=== PATIENT | female | born 1960 | race Caucasian/White ===

== ENCOUNTER 2021-11-30 17:17 | Emergency (ER) | payer BC, SELFPAY ==
[2021-11-30 18:22] VITALS: BP 173/83; PULSE 114; RESP 18; TEMP 37; O2SAT 96; BMI 21.9
--- NOTE | 2021-11-30 18:25 | XR_ITS ---
PROCEDURE INFORMATION: Exam: XR Chest Exam date and time: 11/30/2021 6:22 PM Age: 61 years old Clinical indication: Smoker's cough TECHNIQUE: Imaging protocol: Radiologic exam of the chest. Views: 2 views. COMPARISON: CR CXR CHEST(2 VIEWS-NOT PORTABLE) 08/03/2015 10:48 PM FINDINGS: Lungs: Normal pulmonary expansion. Pulmonary vasculature grossly normal. No gross pulmonary infiltrates or edema pattern. Pleural spaces: Mild bilateral pleural/parenchymal scarring in the pulmonary apices. This is unchanged. No pleural effusion. No pneumothorax. Heart/Mediastinum: Heart size normal. No tracheal/mediastinal shift. Bones/joints: No acute osseous abnormalities are identified. Soft tissues: Upper abdominal surgical clips noted. IMPRESSION: No acute thoracic process. No significant interval change.
--- NOTE | 2021-11-30 18:28 | EXP.UTC ---
Discharge Plan Disposition Patient Disposition: Home, Self-Care Condition: Good Prescriptions Prescriptions: New benzonatate [benzonatate] 100 mg capsule 100 mg PO TIDP PRN (Reason: Cough) Qty: 30 0RF methylprednisolone 4 mg Tablets,Dose Pack 4 mg PO DIRECTED Qty: 21 0RF amoxicillin-pot clavulanate 875-125 mg Tablet 1 tab PO Q12H Qty: 20 0RF No Action promethazine-DM 120 ML syrup 5 ml PO Q6HP PRN (Reason: Cough) Qty: 240 0RF azithromycin 250 MG tablet 250 mg PO UD DOSE PK Qty: 6 0RF Rx Instructions: Take two (2) tablets today, then one (1) tablet days #2 thru #5 methylprednisolone 4 MG tablets,dose pack 4 mg PO DIRECTED 6 Days Qty: 21 0RF albuterol sulfate 18 GM HFA aerosol inhaler 1 - 2 puffs IH Q4-6H PRN (Reason: Shortness Of Breath Or Wheezing) Qty: 1 0RF Referrals Follow up/Referrals: Dayana Mcconnell [Primary Care Provider] - See instructions Activity Restrictions/Add. Instructions Additional Instructions/Restrictions: Drink plenty of fluids. Take tylenol or ibuprofen for pain or fever. Take the medications as directed. Follow up with your regular doctor. GO TO THE ER FOR ANY WORSENING SYMPTOMS Don't start the oral steroids until tomorrow, since you had the shot here today. Clinical Impressions Clinical Impression: COPD exacerbation Instructions Patient Instructions: DI for Chronic Obstructive Pulmonary Disease Discharge ED Provider: Moe Choe [facility] [place] HPI General Stated complaint: CHILLS, COUGH, CONGESTION Mode of Arrival: Ambulatory Source of Information: Patient Limitations: No Limitations Time Seen by Provider: 11/30/21 18:28 Description of Symptoms (Recalled from Triage Doc. by RN): pt comes in with c/o cough, chest pain with coughing, pain in groin when coughing. HEENT Symptoms (Recalled from RN notes): No Resp Symptoms (Recalled from RN notes): Yes Skin Symptoms (Recalled from RN notes): No MS Symptoms (Recalled from RN notes): No Functional Status (Recalled from RN notes): n/a History of Present Illness Provider Complaint: She states that for the past 3 days she has been having a worsening cough and chest congestion. Related Data Previous Rx's Medication Instructions Recorded albuterol sulfate 90 mcg/actuation 1 - 2 puffs IH Q4-6H PRN Shortness 12/27/18 aerosol inhaler Of Breath Or Wheezing #1 inh azithromycin 250 mg tablet 250 mg PO UD DOSE PK #6 tabs 12/27/18 methylprednisolone 4 mg tablets in 4 mg PO DIRECTED 6 days ##21 12/27/18 a dose pack promethazine-DM 6.25 mg-15 mg/5 mL 5 ml PO Q6HP PRN Cough ##240 12/27/18 oral syrup amoxicillin 875 mg-potassium 1 tab PO Q12H #20 tabs 11/30/21 clavulanate 125 mg tablet benzonatate 100 mg capsule 100 mg PO TIDP PRN Cough #30 caps 11/30/21 methylprednisolone 4 mg tablets in 4 mg PO DIRECTED #21 tabs 11/30/21 a dose pack Allergies Allergy/AdvReac Type Severity Reaction Status Date / Time No Known Allergies Allergy Verified 11/30/21 18:26 Worker's Comp Is this a Worker's Comp case?: No PFSH PFSH Social History Smoking Status: Never smoker second hand exposure: No alcohol intake: never current occupational status: other Travel in the last 8 weeks: None housing: house ROS Obtained: Yes All systems reviewed & no additional complaints except as documented Constitutional Constitutional: Denies chills and Denies fever(s) Eyes Eyes: Denies eye discharge ENT Ears, Nose, Mouth, and Throat: Reports as per HPI Cardiovascular Cardiovascular: Denies chest pain Respiratory Respiratory: Denies chest congestion and Reports cough Gastrointestinal Gastrointestingal: Reports nausea; Denies abdominal pain, constipation, cramping, diarrhea or vomiting Musculoskeletal Musculoskeletal: Denies arthralgias Integumentary/Breasts Skin/Breast: Denies rash Neurologic Neurologic: Denies paresthesias Physical E
[2021-11-30 19:21] VITALS: BP 173/83; PULSE 114; RESP 18; TEMP 37
== END 2021-11-30 19:28 | disposition home or self-care (01) ==
PROVIDERS: Emergency Provider Nurse Practitioner Family; PCP Nurse Practitioner Family
DX: R07.9 Chest pain, unspecified (principal); R10.30 Lower abdominal pain, unspecified; R06.02 Shortness of breath; R05.9 Cough, unspecified; R11.0 Nausea; Z79.51 Long term (current) use of inhaled steroids; Z79.52 Long term (current) use of systemic steroids; Z20.822 Contact with and (suspected) exposure to COVID-19
CPT/HCPCS: 71046; 96372; 99213; C9803; G0463; J0696; U0003; U0005

== ENCOUNTER 2022-08-01 18:33 | Emergency (ER) | payer BC, SELFPAY ==
[2022-08-01 18:45] VITALS: BP 141/71; PULSE 77; RESP 18; TEMP 37; O2SAT 98; BMI 22.6
--- NOTE | 2022-08-01 19:13 | EXP.UTC ---
Discharge Plan Disposition Patient Disposition: Home, Self-Care Condition: Good Prescriptions Prescriptions: New amoxicillin-pot clavulanate 875-125 mg Tablet 1 tab PO Q12H Qty: 20 0RF No Action promethazine-DM 120 ML syrup 5 ml PO Q6HP PRN (Reason: Cough) Qty: 240 0RF azithromycin 250 MG tablet 250 mg PO UD DOSE PK Qty: 6 0RF Rx Instructions: Take two (2) tablets today, then one (1) tablet days #2 thru #5 methylprednisolone 4 MG tablets,dose pack 4 mg PO DIRECTED 6 Days Qty: 21 0RF albuterol sulfate 18 GM HFA aerosol inhaler 1 - 2 puffs IH Q4-6H PRN (Reason: Shortness Of Breath Or Wheezing) Qty: 1 0RF benzonatate [benzonatate] 100 mg capsule 100 mg PO TIDP PRN (Reason: Cough) Qty: 30 0RF methylprednisolone 4 mg Tablets,Dose Pack 4 mg PO DIRECTED Qty: 21 0RF amoxicillin-pot clavulanate 875-125 mg Tablet 1 tab PO Q12H Qty: 20 0RF Referrals Follow up/Referrals: Jono Espinal MD [Physician] - See instructions Charly Joyner MD [Physician] - See instructions Dayana Mcconnell [Primary Care Provider] - See instructions Terri Mendenhall APRN [Nurse Practitioner] - See instructions Activity Restrictions/Add. Instructions Additional Instructions/Restrictions: Recommend lemon drops, tart candies, or other sialogogues to promote salivation and stone passage Suck on ice chips or ice treats such as Popsicles. Eat soft foods that do not have to be chewed much Drink lots of water and use sugar-free lemon drops?or lemon drops if you cannot find sugar free to increase the flow of saliva and reduce swelling. Massaging the gland with heat. Using warm compresses on the inflamed gland Follow up with ENT if no improvement or any worsening of symptoms Call office tomorrow for appointment Over the counter Motrin and/or Tylenol may help with pain and discomfort Clinical Impressions Clinical Impression: Parotitis Instructions Patient Instructions: DI for Parotitis-Adult, Parotitis Discharge ED Provider: Samantha Woods [facility] [place] General Stated complaint: swollen glands Mode of Arrival: Ambulatory Source of Information: Patient Limitations: No Limitations Time Seen by Provider: 08/01/22 19:05 Description of Symptoms (Recalled from Triage Doc. by RN): PATIENT C/O SWOLLEN LYMPH NODES TO LEFT SIDE OF NECK THAT STARTED TODAY HEENT Symptoms (Recalled from RN notes): Yes Resp Symptoms (Recalled from RN notes): No Skin Symptoms (Recalled from RN notes): No MS Symptoms (Recalled from RN notes): No Functional Status (Recalled from RN notes): WNL History of Present Illness Provider Complaint: Patient states that earlier today she noticed a sore area on the left side of jaw/neck area just under her ear that was tender and swollen States that she noticed when she would eat it would swelling up and then got down some States that this evening the area is still swollen States that she has also had pain in that ear on and off and was recently treated for ear infection in right ear but it is feeling better States that the pain in her jaw area aggravated with chewing Related Data Previous Rx's Medication Instructions Recorded albuterol sulfate 90 mcg/actuation 1 - 2 puffs IH Q4-6H PRN Shortness 12/27/18 aerosol inhaler Of Breath Or Wheezing #1 inh azithromycin 250 mg tablet 250 mg PO UD DOSE PK #6 tabs 12/27/18 methylprednisolone 4 mg tablets in 4 mg PO DIRECTED 6 days ##21 12/27/18 a dose pack promethazine-DM 6.25 mg-15 mg/5 mL 5 ml PO Q6HP PRN Cough ##240 12/27/18 oral syrup amoxicillin 875 mg-potassium 1 tab PO Q12H #20 tabs 11/30/21 clavulanate 125 mg tablet benzonatate 100 mg capsule 100 mg PO TIDP PRN Cough #30 caps 11/30/21 methylprednisolone 4 mg tablets in 4 mg PO DIRECTED #21 tabs 11/30/21 a dose pack amoxicillin 875 mg-potassium 1 tab PO Q12H #20 tabs 08/01/22 clavulanate 125 mg tablet Allergies Allergy/AdvReac Type Severity Reaction Status Date / Time No Known A
[2022-08-01 19:27] VITALS: BP 141/71; PULSE 77; RESP 18; TEMP 37; O2SAT 98
== END 2022-08-01 20:05 | disposition home or self-care (01) ==
PROVIDERS: Emergency Provider Nurse Practitioner; PCP Nurse Practitioner Family
DX: R68.84 Jaw pain (principal); K11.20 Sialoadenitis, unspecified
CPT/HCPCS: 99212; 99214; G0463

== ENCOUNTER → 2022-08-15 10:38 | Outpatient (CLI) | payer BC, SELFPAY ==
[2022-08-15 12:21] LABS: Free T4 (Free Thyroxine) 0.93 ng/dl (0.78-2.19)
[2022-08-15 12:34] LABS: Thyroid Stimulating Hormone 3.63 uIU/mL (0.465-4.68)
[2022-08-16 09:00] LABS: Thyroid Peroxidase Antibodies 29 IU/mL (0-34)
[2022-08-17 15:06] LABS: Thyroglobulin Level <1.0 IU/mL (0.0-0.9)
[2022-08-17 18:06] LABS: Thyroid Stimulating Immunoglob <0.10 IU/L (0.00-0.55)
== END ==
PROVIDERS: PCP Nurse Practitioner Family; Visit Provider Nurse Practitioner
DX: E04.2 Nontoxic multinodular goiter (principal)
CPT/HCPCS: 36415; 84439; 84443; 84445; 86376; 86800

== ENCOUNTER → 2022-09-01 08:29 | Outpatient (POV) | payer BC, SELFPAY | PROVIDERS: Visit Provider Specialist/Technologist | DX: Z00.00 Encounter for general adult medical examination without abnormal findings (principal) ==

== ENCOUNTER 2023-05-26 18:26 | Emergency (ER) | payer BC, SELFPAY ==
[2023-05-26 19:00] VITALS: BP 148/60; PULSE 77; RESP 20; TEMP 36.7; O2SAT 98; BMI 22.4
--- NOTE | 2023-05-26 19:56 | ED_ITS ---
Discharge Plan Disposition Patient Disposition: Home, Self-Care Condition: Good Prescriptions Prescriptions: No Action sertraline 50 mg tablet 50 mg PO DAILY Patient Comments: TAKE 1 TABLET 1 TIME EACH DAY ergocalciferol (vitamin D2) [Vitamin D2] 1,250 mcg (50,000 unit) capsule 1,250 mcg PO WEEKLY Patient Comments: TAKE 1 CAPSULE 1 TIME EACH WEEK levocetirizine 5 mg tablet 5 mg PO DAILY Patient Comments: TAKE 1 TABLET 1 TIME EACH DAY fluticasone propionate [Flonase Allergy Relief] 50 mcg/actuation spray,suspension 2 spray intranasal BID Qty: 16 2RF Rx Instructions: administer into each nostril albuterol sulfate 18 GM HFA aerosol inhaler 1 - 2 puffs inhalation Q4-6H PRN (Reason: Shortness Of Breath Or Wheezing) Qty: 1 0RF Referrals Follow up/Referrals: Terri Mendenhall APRN [Nurse Practitioner] - See instructions Akanksha Bentley PA [Primary Care Provider] - See instructions Activity Restrictions/Add. Instructions Additional Instructions/Restrictions: Additional Instructions/Restrictions: * Recommend lemon drops, tart candies, or other sialogogues to promote salivation and stone passageSuck on ice chips or ice treats such as Popsicles. Eat soft foods that do not have to be chewed much Drink lots of water and use sugar-free lemon drops?or lemon drops if you cannot find sugar free to increase the flow of saliva and reduce swelling. Massaging the gland with heat. Using warm compresses on the inflamed gland Follow up with ENT if no improvement or any worsening of symptoms Call ENT office for appointment Over the counter Motrin and/or Tylenol may help with pain and discomfort Take antibiotics as prescribed Clinical Impressions Clinical Impression: Parotitis, Otitis media Instructions Patient Instructions: Parotitis, DI for Parotitis-Adult, Middle Ear Infection Discharge ED Provider: Samantha Woods [facility] [place] HPI General Stated complaint: left side of face swollen/painful Mode of Arrival: Ambulatory Source of Information: Patient Limitations: No Limitations Time Seen by Provider: 05/26/23 19:56 Description of Symptoms (Recalled from Triage Doc. by RN): PATIENT C/O SWELLING TO LEFT SIDE OF FACE NEAR EAR THAT STARTED TODAY HEENT Symptoms (Recalled from RN notes): Yes Resp Symptoms (Recalled from RN notes): No Skin Symptoms (Recalled from RN notes): No MS Symptoms (Recalled from RN notes): No Functional Status (Recalled from RN notes): WNL History of Present Illness Provider Complaint: Patient states that she has been having pain in her left ear and noticed she had some swelling on her jaw area just below ear where her jaw and ear meet States that she has had infected saliva gland and feels like it it did then just hurting a little more so she came in worried it would get worse throughout the night Related Data Home Medications Medication Instructions Recorded Confirmed ergocalciferol (vitamin D2) 1,250 1,250 mcg PO WEEKLY 08/15/22 09/05/22 mcg (50,000 unit) capsule (Vitamin D2) levocetirizine 5 mg tablet 5 mg PO DAILY 08/15/22 09/05/22 sertraline 50 mg tablet 50 mg PO DAILY 08/15/22 09/05/22 Previous Rx's Medication Instructions Recorded albuterol sulfate 90 mcg/actuation 1 - 2 puffs inhalation Q4-6H PRN 12/27/18 aerosol inhaler Shortness Of Breath Or Wheezing #1 inh fluticasone propionate 50 2 spray intranasal BID allergy 09/05/22 mcg/actuation nasal symptoms #16 grams spray,suspension (Flonase Allergy Relief) Allergies Allergy/AdvReac Type Severity Reaction Status Date / Time No Known Allergies Allergy Verified 09/05/22 09:27 Worker's Comp Is this a Worker's Comp case?: No [facility] Disclaimer: The information contained in this section may have been updated after the patient was seen, as this information can be updated by other users. Medical History Hearing loss Multiple thyroid nodules Otalgia of both ears TMJ (dislocation of temporomandibular joint) Tympanosclerosis Surgical History History of appendectomy History of cholecystectomy History of hysterectomy History of tonsillectomy Social History Smoking Status: Never smoker second hand exposure: No alcohol intake: never current occupational status: other Travel in the last 8 weeks: None housing: house ROS Obtained: Yes All systems reviewed & no additional complaints except as documented and Yes Systems reviewed as appropriate & no additional complaints except as documented Constitutional Constitutional: Reports system reviewed and no additional complaints, except as documented and Reports as per HPI ENT Ears, Nose, Mouth, and Throat: Reports system reviewed and no additional complaints, except as documented, Reports as per HPI, Reports otalgia and Reports other (mild swelling on jaw area) Cardiovascular Cardiovascular: Reports system reviewed and no additional complaints, except as documented and Reports as per HPI Physical Exam General General appearance: alert and in no apparent distress Head Head exam: other Expanded Head Exam Head image: 2 1. mild swelling noted appears like parotitis ENT ENT exam: Present mucous membranes moist Expanded ENT Exam TM/Canal exam: Left TM: erythema and bulging Respiratory Respiratory exam: Present normal lung sounds bilaterally; Absent respiratory distress or wheezes Cardiovascular Cardiovascular exam: Present regular rate, normal rhythm and normal heart sounds Neurological Exam Neurological exam: Present alert and oriented X3 Medical Decision Making [place] Inquiry Pt receiving controlled substance: No [place] was queried for this patient: No Vital Signs: 05/26/23 19:00 Temperature 98.1 F Temperature Source Oral Pulse Rate [Right Brachial] 77 Respiratory Rate 20 Blood Pressure [Right Arm] 148/60 H Blood Pressure Mean [Right Arm] 89 Blood Pressure Source [Right Arm] Automatic Cuff Blood Pressure Position [Right Arm] Sitting 02 Sat by Pulse Oximetry 98 Oxygen Delivery Method Room Air
[2023-05-26 19:57] VITALS: BP 148/60; PULSE 77; RESP 20; TEMP 36.7; O2SAT 98
[2023-05-26] MEDS: AMOXICILLIN/CLAVULANATE POTASSIUM 875/125MG TABLET 1 EACH PO (20:08)
== END 2023-05-26 20:10 | disposition home or self-care (01) ==
PROVIDERS: Emergency Provider Nurse Practitioner; PCP Physician Assistant
DX: R68.84 Jaw pain (principal); K11.20 Sialoadenitis, unspecified; H66.92 Otitis media, unspecified, left ear
CPT/HCPCS: 99212; 99214; G0463